=== PATIENT | female | born 1970 | race Two or more races ===

== ENCOUNTER 2018-10-29 14:00 | Inpatient (IN) | payer OTHER, SELFPAY ==
[~2018-10-29] VITALS: Ht 144.8 cm; Wt 61.6 kg
[2018-10-29 15:02] LABS: MEAN CORPUSCULAR HEMOGLOBIN 29.8 pg (27.0-34.8); MEAN CORPUSCULAR HGB CONC 32.9 g/dL (32.4-35.8); MEAN CORPUSCULAR VOLUME 90.5 fL (80-100); MEAN PLATELET VOLUME 7.5 fL (7.4-10.4); PLATELET COUNT 381 x10^3/uL (130-400); RED BLOOD COUNT 4.52 x10^6/uL (3.82-5.3); RED CELL DISTRIBUTION WIDTH 13.8 % (9.6-15.2)
[2018-10-29 15:09] LABS: ALANINE AMINOTRANSFERASE 27 U/L (12-78); ALBUMIN 3.6 g/dL (3.4-5.0); ANION GAP 5 mmol/L (5-15); CALCIUM 8.9 mg/dL (8.5-10.1); CHLORIDE 105 mmol/L (98-107); CREATININE 0.81 mg/dL (0.55-1.02)
[2018-10-29 15:14] LABS: ALKALINE PHOSPHATASE 101 U/L (45-117); BILIRUBIN,TOTAL 0.6 mg/dL (0.2-1.0); TOTAL PROTEIN 7.9 g/dL (6.4-8.2)
[2018-10-29 15:30] LABS: BASOPHILS # (AUTO) 0.01 x10^3/uL (0-0.1); BASOPHILS % (AUTO) 0 % (0-1); EOSINOPHILS % (AUTO) 0 % (1-7); LYMPHOCYTES # (AUTO) 1.37 x10^3/uL (1-3.4); LYMPHOCYTES % (AUTO) 9 % (22-44); MD SCAN; MONOCYTES # (AUTO) 0.71 x10^3/uL (0.2-0.8); MONOCYTES % (AUTO) 5 % (2-9); NEUTROPHILS # (AUTO) 12.43 x10^3/uL (1.8-6.8); NEUTROPHILS % (AUTO) 86 % (42-75)
--- NOTE | 2018-10-29 15:56 | NUR ---
N/V, WONG, RLQ ABD PAIN X 1 WEEK, WORSE TODAY. +SYNCOPAL EPSODES X 2 PER-FAMILY +BURNING WITH URINATION
[2018-10-29 16:14] LABS: MICROSCOPIC INDICATED
--- NOTE | 2018-10-29 16:20 | NUR ---
PATIENT TO CT. ORTHO POSITIVE ( HR FROM 69->110 W/ STANDING). CONTINUES TO BE VERY TIRED BUT ORIENTED. FAMILY UPDATED ON ESTIMATED POC.
[2018-10-29 16:22] LABS: CULTURE INDICATED? YES
--- NOTE | 2018-10-29 16:53 | NUR ---
PROVIDER TO BEDSIDE. UPDATED PATIENT/FAMILY WITH TESTING RESULTS. PLAN TO START IV FLUID/IV ABX AND ADMIT. VITAL UPDATED ADDITIONAL BLANKET PROVIDED. CALL ROBIN IN HAND/SIDE RAILS UP. DAUGHTER(S) AT BEDSIDE
[2018-10-29] MEDS ORDERED: CEFAZOLIN PMX 1GM/50ML 50 ML ONE (16:59)
[2018-10-29] MEDS: CEFTRIAXONE PMX 1GM/50ML 50 ML IV ONE ×2 (17:00→17:35)
[2018-10-29] MEDS ORDERED: SODIUM CHLORIDE 0.9% 1,000ML IVBOLUS ONE (17:00)
[2018-10-29] MEDS ORDERED: OMNIPAQUE 350 MG/ML, 100ML BOTTLE ONE (17:14)
[2018-10-29] MEDS ORDERED: CEFTRIAXONE PMX 1GM/50ML 50 ML ONE (17:18)
--- NOTE | 2018-10-29 17:21 | NUR ---
TASK RN: PT WALKED TO RESTROOM, PT BLOOD CULTURES AND LABS COLLECTED.
[2018-10-29 17:54] VITALS: BP 118/77
[2018-10-29] MEDS ORDERED: HYDROcodone/APAP 5/325 TABLET PO PRN (18:00)
[2018-10-29] MEDS ORDERED: hydrALAzine 20 MG/ML, 1ML IVPush PRN (18:00)
[2018-10-29] MEDS ORDERED: ONDANSETRON ODT 4 MG PO PRN (18:00)
[2018-10-29] MEDS ORDERED: LIDODERM 5% PATCH TD PRN (18:00)
[2018-10-29] MEDS ORDERED: ONDANSETRON 2MG/ML, 2ML IVPush PRN (18:00)
[2018-10-29] MEDS ORDERED: ZOLPIDEM 5MG TABLET PO PRN (18:00)
[2018-10-29] MEDS ORDERED: BISACODYL 10 MG SUPP PR PRN (18:00)
[2018-10-29] MEDS ORDERED: LABETALOL 5MG/ML, 20ML IVPush PRN (18:00)
[2018-10-29] MEDS ORDERED: POLYETHYLENE GLYCOL 17 GM PACKET PO PRN (18:00)
[2018-10-29] MEDS ORDERED: DOCUSATE 100 MG CAPSULE PO PRN (18:00)
[2018-10-29] MEDS: LACTATED RINGERS 1,000 ML IV SCH (18:16)
[2018-10-29] MEDS: ENOXAPARIN 40 MG/0.4 ML SQ SCH (18:16)
[2018-10-29 18:35] LABS: HCT (SEDRATE) 37.4 % (34.6-47.8)
[2018-10-29 18:53] LABS: TROPONIN I < 0.015 ng/mL (0.000-0.045)
[2018-10-29 18:58] LABS: THYROID STIMULATING HORMONE 0.636 mIU/L (0.358-3.740)
[2018-10-29 19:35] VITALS: BP_SYST 116; BP_SYST 117; BP_SYST 118; BP_DIAS 76; BP_DIAS 77; BP_DIAS 79
[2018-10-29] MEDS: FAMOTIDINE 20 MG TABLET PO SCH (21:58)
[2018-10-29] MEDS: KETOROLAC 30 MG/1 ML IVPush PRN (22:20)
[2018-10-30 00:06] LABS: TROPONIN I < 0.015 ng/mL (0.000-0.045)
[2018-10-30 00:29] VITALS: BP 103/63
[2018-10-30] MEDS: CEFTRIAXONE PMX 1GM/50ML 50 ML IV SCH ×2 (05:07→16:51)
[2018-10-30] MEDS: KETOROLAC 30 MG/1 ML IVPush PRN ×2 (05:31→14:17)
[2018-10-30] MEDS: LACTATED RINGERS 1,000 ML IV SCH ×2 (06:31→16:51)
[2018-10-30 06:37] LABS: BASOPHILS # (AUTO) 0.01 x10^3/uL (0-0.1); BASOPHILS % (AUTO) 0 % (0-1); EOSINOPHILS # (AUTO) 0.07 x10^3/uL (0-0.4); EOSINOPHILS % (AUTO) 1 % (1-7); LYMPHOCYTES # (AUTO) 2.71 x10^3/uL (1-3.4); LYMPHOCYTES % (AUTO) 26 % (22-44); MD NO; MEAN CORPUSCULAR HEMOGLOBIN 30.2 pg (27.0-34.8); MEAN CORPUSCULAR HGB CONC 33.3 g/dL (32.4-35.8); MEAN CORPUSCULAR VOLUME 90.8 fL (80-100); MEAN PLATELET VOLUME 7.6 fL (7.4-10.4); MONOCYTES # (AUTO) 0.82 x10^3/uL (0.2-0.8); MONOCYTES % (AUTO) 8 % (2-9); NEUTROPHILS # (AUTO) 6.71 x10^3/uL (1.8-6.8); NEUTROPHILS % (AUTO) 65 % (42-75); PLATELET COUNT 345 x10^3/uL (130-400); RED BLOOD COUNT 3.87 x10^6/uL (3.82-5.3); RED CELL DISTRIBUTION WIDTH 13.7 % (9.6-15.2)
[2018-10-30 06:39] VITALS: BP 113/71
[2018-10-30 06:39] LABS: ANION GAP 8 mmol/L (5-15); CALCIUM 8.1 mg/dL (8.5-10.1); CHLORIDE 109 mmol/L (98-107); CHOLESTEROL, TOTAL 204 mg/dL (140-239); CREATININE 0.59 mg/dL (0.55-1.02); TRIGLYCERIDES 90 mg/dL (50-200); VLDL CHOLESTEROL 18 mg/dL (0-25)
[2018-10-30 06:41] LABS: HDL CHOLESTEROL (DIRECT) 62 mg/dL (40-60)
[2018-10-30 06:48] LABS: LDL CHOLESTEROL,CALCULATED 124 mg/dL (54-169)
[2018-10-30 06:54] LABS: CHOL/HDL RATIO 3.3; HDL CHOL % 30 % (28-40)
[2018-10-30] MEDS: FAMOTIDINE 20 MG TABLET PO SCH ×2 (09:45→21:32)
[2018-10-30 12:03] VITALS: BP 119/79
[2018-10-30 13:45] VITALS: BP 118/76
[2018-10-30] MEDS: ACETAMINOPHEN 325 MG TABLET PO PRN (14:19)
[2018-10-30] MEDS ORDERED: DULO40CA2 PO (16:33)
[2018-10-30] MEDS ORDERED: NAPR125O4 PO (16:33)
[2018-10-30] MEDS ORDERED: HYDR100C2 PO (16:33)
[2018-10-30] MEDS: ENOXAPARIN 40 MG/0.4 ML SQ SCH (16:50)
[2018-10-30 19:39] VITALS: BP 112/72
[2018-10-31 02:55] VITALS: BP 118/77
[2018-10-31] MEDS: LACTATED RINGERS 1,000 ML IV SCH ×2 (04:36→15:29)
[2018-10-31] MEDS: CEFTRIAXONE PMX 1GM/50ML 50 ML IV SCH ×2 (04:37→17:16)
[2018-10-31 05:10] LABS: ANION GAP 4 mmol/L (5-15); CALCIUM 8.2 mg/dL (8.5-10.1); CHLORIDE 111 mmol/L (98-107); CREATININE 0.75 mg/dL (0.55-1.02)
[2018-10-31 05:15] LABS: BASOPHILS # (AUTO) 0.04 x10^3/uL (0-0.1); BASOPHILS % (AUTO) 1 % (0-1); EOSINOPHILS # (AUTO) 0.17 x10^3/uL (0-0.4); EOSINOPHILS % (AUTO) 3 % (1-7); LYMPHOCYTES # (AUTO) 3.46 x10^3/uL (1-3.4); LYMPHOCYTES % (AUTO) 50 % (22-44); MD NO; MEAN CORPUSCULAR HEMOGLOBIN 30.7 pg (27.0-34.8); MEAN CORPUSCULAR HGB CONC 33.6 g/dL (32.4-35.8); MEAN CORPUSCULAR VOLUME 91.3 fL (80-100); MEAN PLATELET VOLUME 7.7 fL (7.4-10.4); MONOCYTES % (AUTO) 7 % (2-9); NEUTROPHILS # (AUTO) 2.76 x10^3/uL (1.8-6.8); NEUTROPHILS % (AUTO) 40 % (42-75); PLATELET COUNT 340 x10^3/uL (130-400); RED BLOOD COUNT 3.61 x10^6/uL (3.82-5.3); RED CELL DISTRIBUTION WIDTH 13.7 % (9.6-15.2)
[2018-10-31 06:35] VITALS: BP 113/75
[2018-10-31] MEDS: FAMOTIDINE 20 MG TABLET PO SCH ×2 (10:02→19:46)
[2018-10-31 12:15] VITALS: BP 133/86
[2018-10-31] MEDS: ENOXAPARIN 40 MG/0.4 ML SQ SCH (17:16)
[2018-10-31 18:43] VITALS: BP 120/77
[2018-10-31] MEDS: ACETAMINOPHEN 325 MG TABLET PO PRN (18:48)
[2018-11-01 00:30] VITALS: BP 113/72
[2018-11-01 04:25] LABS: BASOPHILS # (AUTO) 0.06 x10^3/uL (0-0.1); BASOPHILS % (AUTO) 1 % (0-1); EOSINOPHILS # (AUTO) 0.18 x10^3/uL (0-0.4); EOSINOPHILS % (AUTO) 3 % (1-7); LYMPHOCYTES % (AUTO) 48 % (22-44); MD NO; MEAN CORPUSCULAR HEMOGLOBIN 30.5 pg (27.0-34.8); MEAN CORPUSCULAR HGB CONC 33.5 g/dL (32.4-35.8); MEAN CORPUSCULAR VOLUME 90.9 fL (80-100); MEAN PLATELET VOLUME 7.6 fL (7.4-10.4); MONOCYTES # (AUTO) 0.47 x10^3/uL (0.2-0.8); MONOCYTES % (AUTO) 7 % (2-9); NEUTROPHILS # (AUTO) 3.04 x10^3/uL (1.8-6.8); NEUTROPHILS % (AUTO) 42 % (42-75); PLATELET COUNT 377 x10^3/uL (130-400); RED BLOOD COUNT 3.84 x10^6/uL (3.82-5.3); RED CELL DISTRIBUTION WIDTH 13.7 % (9.6-15.2)
[2018-11-01 04:34] LABS: ANION GAP 3 mmol/L (5-15); CHLORIDE 108 mmol/L (98-107); CREATININE 0.73 mg/dL (0.55-1.02)
[2018-11-01] MEDS: LACTATED RINGERS 1,000 ML IV SCH (04:38)
[2018-11-01] MEDS: CEFTRIAXONE PMX 1GM/50ML 50 ML IV SCH (04:38)
[2018-11-01 08:10] VITALS: BP 146/88
[2018-11-01] MEDS: FAMOTIDINE 20 MG TABLET PO SCH (08:15)
[2018-11-01] MEDS ORDERED: CEPH-368 PO (09:41)
== END 2018-11-01 10:26 | disposition home or self-care (01) | DRG 689 ==
LOC: ED 15:20 → EDIP 17:08 → 5SO 17:47 → 3NW 10-30 13:39 → DCLOUNGE 11-01 10:17
PROVIDERS: ADMIT Internal Medicine; ATTEND Internal Medicine
DX: N30.90 Cystitis, unspecified without hematuria (principal); R65.11 Systemic inflammatory response syndrome (SIRS) of non-infectious origin with acute organ dysfunction; G47.00 Insomnia, unspecified; F41.9 Anxiety disorder, unspecified; E86.0 Dehydration; Z79.899 Other long term (current) drug therapy; I95.9 Hypotension, unspecified
CPT/HCPCS: 0399T; 36415; 70450; 71045; 74177; 76857; 80048; 80053; 80061; 81001; 82140; 82962; 83605; 83690; 84443; 84484; 84703; 85025; 85651; 87040; 87077; 87086; 87186; 93005; 93306; 96372; 96374; 99285; G0378; J0696; J1650; J1885; Q9967; J7030; J7120